=== PATIENT | female | born 1960 | race Caucasian/White ===

== ENCOUNTER 2018-11-01 22:41 | Observation (INO) ==
[2018-11-01] MEDS ORDERED: Isovue-370 500 ML BOTTLE IVP ONE ×2 (23:08→23:09)
[2018-11-01 23:29] LABS: Hematocrit 35.6 % (35.3-44.9); Hemoglobin 12.1 g/dL (11.5-15.4); Mean Corpuscular Hemoglobin 30.5 pg (28.0-33.3); Mean Corpuscular Volume 89.7 fL (83.0-100.0); Mean Platelet Volume 9.1 fL (9.4-12.4); Platelet Count 328 K/mcL (140-400); Red Blood Count 3.97 M/mcL (3.82-4.97); Red Cell Distribution Width 12.1 % (11.5-14.5)
[2018-11-01 23:43] LABS: INR 1.1; Prothrombin Time 12.7 Seconds (9.4-12.1)
[2018-11-01 23:46] LABS: Activated Partial Thrombo Time 34.3 Seconds (26.0-36.0)
[2018-11-01 23:47] LABS: Alanine Aminotransferase 27 Units/L (7-52); Albumin 4.2 g/dL (3.5-5.7); Albumin/Globulin Ratio 1.4 (1.1-2.2); Alkaline Phosphatase 145 Units/L (34-104); Aspartate Amino Transferase 20 Units/L (13-39); BUN/Creatinine Ratio 19 (6-26); Bilirubin,Indirect 0.4 mg/dL (0.0-1.2); Bilirubin,Total 0.4 mg/dL (0.3-1.0); Blood Urea Nitrogen 16 mg/dL (6-20); Calcium 9.3 mg/dL (8.6-10.3); Carbon Dioxide 24 mEq/L (23-29); Chloride 103 mEq/L (98-107); Glucose 146 mg/dL (70-105); Lipase 36 Units/L (11-82); Osmolality,Calculated 290 (280-300); Potassium 3.1 mEq/L (3.5-5.1); Sodium 138 mEq/L (136-145); Total Protein 7.2 g/dL (6.4-8.9); eGFR For African Americans > 60 (> 60); eGFR For Non-African Americans > 60 (> 60)
[2018-11-01 23:48] LABS: Troponin I 0.03 ng/mL (< 0.04)
[2018-11-02] MEDS ORDERED: 0.9 % Sodium Chloride 1,000 ML IVC STA (00:29)
[2018-11-02] MEDS ORDERED: Aspirin 81 MG TAB.CHEW PO STA (00:45)
[2018-11-02] MEDS ORDERED: Naloxone 0.4 MG/ML INJ IVP PRN (03:06)
[2018-11-02 03:13] LABS: Thyroid Stimulating Hormone 45.128 mcIU/mL (0.340-5.600)
[2018-11-02 03:16] LABS: Triiodothyronine (T3) Free 3.04 pg/mL (2.50-3.90)
[2018-11-02] MEDS ORDERED: Acetaminophen 325 MG TABLET PO PRN (04:14)
[2018-11-02] MEDS ORDERED: *HR* Promethazine 25 MG/ML VIAL IVP PRN (04:14)
[2018-11-02 05:39] LABS: Magnesium 2.2 mg/dL (1.6-2.6)
[2018-11-02] MEDS ORDERED: Aspirin Enteric Coated 81 MG Tablet PO SCH (09:00)
[2018-11-02 09:34] VITALS: BP 131/70
[2018-11-02] MEDS ORDERED: 0.9 % Sodium Chloride 1,000 ML IVC SCH (10:30)
[2018-11-02] MEDS ORDERED: Levothyroxine Sodium 100 MCG VIAL IVP ONE (10:50)
== END 2018-11-02 14:58 | disposition home or self-care (01) ==
LOC: 3BNU 22:41 → EMEROOARM 22:41 → 3BNU 11-02 03:31
PROVIDERS: ADMIT Internal Medicine Nephrology; ATTEND Internal Medicine Nephrology